=== PATIENT | male | born 1985 | race Caucasian/White ===

== ENCOUNTER 2021-09-13 13:41 | Emergency (ER) | payer OTHER ==
[2021-09-13 13:50] VITALS: TEMP 98.3
[2021-09-13] MEDS ORDERED: PERCOCET 325 MG1 TA2 PO (15:41)
[2021-09-13] MEDS ORDERED: CRUTCHES MC (15:41)
[2021-09-13 15:54] VITALS: BP 126/90; PULSE 70
[2021-09-14] MEDS ORDERED: CRUTCHES MC (12:46)
== END 2021-09-13 15:57 | disposition home or self-care (01) ==
LOC: COL.ER 13:41
DX: M25.461 Effusion, right knee (principal); W01.0XXA Fall on same level from slipping, tripping and stumbling without subsequent striking against object, initial encounter; X50.1XXA Overexertion from prolonged static or awkward postures, initial encounter; Y93.61 Activity, american tackle football
CPT/HCPCS: L1846